=== PATIENT | male | born 1955 | race African-American/Black ===

== ENCOUNTER 2016-09-23 05:33 | Day surgery (SDC) | payer BC ==
[~2016-09-23] VITALS: Ht 182.9 cm; Wt 93.4 kg
[~2016-09-23 05:33] MED LIST: BEE POLLEN550 MG PO; CIALIS20 MG PO; COSOPT EYE DROPS5 ML BOTH EYES; DAILY VALUE1 EACH PO; GLUCOSAMINE &1 EAC1 PO; INSPRA50 MG PO; LATANOPROST2.5 ML BOTH EYES; LO-DOSE ASPIRIN81 M1 PO; NORVASC10 MG PO; ODOR FREE GARL1 EACH PO; OMEPRAZOLE40 M1 PO; VITAMIN B-6100 MG PO
[2016-09-23 06:06] VITALS: BP 127/76
[2016-09-23] MEDS ORDERED: NORCO 5/3251 TABLET PO (09:13)
[2016-09-23 10:34] VITALS: BP 148/90
[2016-09-23 11:25] VITALS: BP 130/70
[2016-09-23 13:46] VITALS: BP 146/81
== END 2016-09-23 14:00 | disposition home or self-care (01) ==
LOC: SDC 05:33
DX: K80.10 Calculus of gallbladder with chronic cholecystitis without obstruction (principal); I10 Essential (primary) hypertension; K21.9 Gastro-esophageal reflux disease without esophagitis; Z79.82 Long term (current) use of aspirin; E66.3 Overweight; Z68.28 Body mass index [BMI] 28.0-28.9, adult
CPT/HCPCS: 74300; 88304; C1769; J0131; J1170; J2250; J2405; J2710; J2765; J3010; S0020

== ENCOUNTER → 2017-03-09 | Outpatient (CLI) | payer BC ==
[~2017-03-09] MED LIST changes: +NORCO 5/3251 TABLET PO
== END | disposition home or self-care (01) ==
LOC: NUC 08:38
DX: R18.8 Other ascites (principal)
CPT/HCPCS: 78226; A9537

== ENCOUNTER → 2017-03-20 | Outpatient (CLI) | payer BC ==
[~2017-03-20] MED LIST changes: +B-6200 MG PO; +TRIAMCINOLONE A15 GM TP
[2017-03-20 08:22] LABS: HEMATOCRIT 40.2 % (38.0-50.0); HEMOGLOBIN 13.4 G/DL (12.5-16.6); MCH 28.2 PG (29.0-34.0); MCHC 33.3 G/DL (30.0-36.0); MCV 84.5 FL (86-99); PLATELET COUNT 290 K/uL (156-360); RBC DIS.WIDTH-CV 14.4 % (11.8-14.6); RBC DIS.WIDTH-SD 44.2 % (39-53); RED BLOOD COUNT 4.76 M/uL (4.00-5.50); WHITE BLOOD COUNT 6.3 K/uL (4.1-10.2)
[2017-03-20 10:52] LABS: INTER. NORMALIZED RATIO 1.1
== END | disposition home or self-care (01) ==
LOC: OPR 07:32 → EDSTATUS 09:00 → OPR 09:00
PROVIDERS: Internal Medicine Gastroenterology
PROC: 0WJFXZZ Inspection of Abdominal Wall, External Approach (ICD-10-PCS; principal; 2017-03-20)
DX: K66.8 Other specified disorders of peritoneum (principal); K83.9 Disease of biliary tract, unspecified; Z53.09 Procedure and treatment not carried out because of other contraindication; Z90.49 Acquired absence of other specified parts of digestive tract
CPT/HCPCS: 74150; 85027; 85610; 85730; J3010